=== PATIENT | female | born 1990 | race Caucasian/White ===

== ENCOUNTER 2020-07-15 19:28 | Emergency (ER) | payer MEDICAID, OTHER ==
[~2020-07-15] VITALS: Ht 170.2 cm; Wt 104.3 kg
[2020-07-15 20:15] LABS: Urine Bacteria FEW /hpf (None Seen); Urine Blood 1+ /uL (Negative); Urine Specific Gravity 1.009 (1.001-1.035); Urine WBC 360 /hpf (0 - 5)
[2020-07-15] MEDS ORDERED: cefTRIAXone SOD 1,000 MG VL IM ONE (23:45)
[2020-07-15] MEDS ORDERED: IBUPROFEN 800 MG TAB PO ONE (23:45)
[2020-07-16 00:11] VITALS: BP 135/93
== END 2020-07-16 00:05 | disposition home or self-care (01) ==
LOC: ER 19:30
DX: N39.0 Urinary tract infection, site not specified (principal); F12.10 Cannabis abuse, uncomplicated; Z32.02 Encounter for pregnancy test, result negative; Z88.1 Allergy status to other antibiotic agents
CPT/HCPCS: 81001; 81025; 96372; 99283; J0696

== ENCOUNTER 2021-05-18 16:41 | Emergency (ER) | payer MEDICAID ==
[~2021-05-18] VITALS: Ht 170.2 cm; Wt 95.3 kg
[2021-05-18] MEDS ORDERED: KETOROLAC TROMETH 60MG/2ML VIAL IM ONE (20:00)
[2021-05-18 20:28] VITALS: BP 129/77
== END 2021-05-18 20:35 | disposition home or self-care (01) ==
LOC: ER 16:41
DX: S39.012A Strain of muscle, fascia and tendon of lower back, initial encounter (principal); Z88.1 Allergy status to other antibiotic agents; X50.1XXA Overexertion from prolonged static or awkward postures, initial encounter; Y93.89 Activity, other specified; Y92.89 Other specified places as the place of occurrence of the external cause; Y99.8 Other external cause status
CPT/HCPCS: 73502; 73562; 96372; 99284; J1885